=== PATIENT | male | born 1955 | race Caucasian/White ===

== ENCOUNTER → 2016-09-04 | Outpatient (CLI) | payer BC ==
--- NOTE | 2016-09-04 09:30 | DIAGNOSTIC IMAGING REPORT ---
CT LUNG SCREENING, LOW DOSE WITH COMPUTER-AIDED DETECTION (CAD) CLINICAL HISTORY: LUNG CANCER SCREEN COMPARISON STUDY: Chest radiograph dated 01/16/2013. CT DOSE: 98.01 mGy.cm TECHNIQUE: Low-dose helical CT was acquired without intravenous contrast from lung apices to bases and reconstructed at 2.5 mm every 2 mm. CAD was utilized for this study. FINDINGS: Thyroid: Imaged portions of the thyroid gland are normal in appearance. Thoracic aorta: There is mild atherosclerotic calcification of the thoracic aorta, which is normal in caliber and demonstrates standard 3 vessel arch anatomy. Heart: The heart is normal in size and without pericardial effusion. The pulmonary trunk is normal in caliber. Lungs and pleural spaces: Biapical scarring and emphysema are noted. There is no airspace consolidation or pleural effusion. A fat-containing Bochdalek hernia is seen at the right lung base. The trachea and central airways are clear. No concerning pulmonary lesion is seen. Mediastinum: There is no mediastinal lymphadenopathy. Lizeth: Not well assessed without IV contrast. Axilla: Clear. Upper abdomen: There is a small hiatal hernia. Partially visualized upper abdominal viscera is otherwise grossly unremarkable. Skeletal structures: There are no lytic or blastic osseous lesions. IMPRESSION: 1. Emphysema. 2. No concerning pulmonary lesion is identified. See below. 3. No mediastinal lymphadenopathy is seen. CAD FINDINGS: Overall Lung RADS Category: 1 Lung RADS Management Recommendation: Lung-RADS 1: Continue annual screening in 12 months. Lung RADS Follow Up Date: 2017-09-04 Electronically signed by: Jorge Carlton M.D. 09/04/2016 9:28 AM Dictated Date/Time: 09/04/2016 9:21 AM
== END | disposition home or self-care (01) ==
LOC: C.CTS 09:02
PROVIDERS: ATTEND Family Medicine
DX: Z12.2 Encounter for screening for malignant neoplasm of respiratory organs (principal); J43.9 Emphysema, unspecified

== ENCOUNTER → 2017-09-08 | Outpatient (CLI) | payer OTHER ==
--- NOTE | 2017-09-08 09:36 | DIAGNOSTIC IMAGING REPORT ---
CT LUNG SCREENING, LOW DOSE WITH COMPUTER-AIDED DETECTION (CAD) CLINICAL HISTORY: Lung cancer screening. COMPARISON STUDY: Chest CT 09/04/2016. CT DOSE: 97.49 mGy.cm TECHNIQUE: Low-dose helical CT was acquired without intravenous contrast from lung apices to bases and reconstructed at 2.5 mm every 2 mm. CAD was utilized for this study. A dose lowering technique was utilized adhering to the principles of ALARA. FINDINGS: Emphysema. Mild biapical scarlike densities remain unchanged. No new or suspicious pulmonary nodules. The central airways are patent. No suspicious lytic or blastic osseous lesions. No mediastinal or hilar lymphadenopathy. Normal caliber thoracic aorta. The heart is borderline enlarged. Right-sided gynecomastia. The visualized liver, spleen, and adrenal glands are unremarkable. There are 2 subcentimeter nodules within the left lung apex on images 26 and 30. There is a single subcentimeter nodule within the right lung apex on image 33. These were present on the prior study. Nodule 1 Category: 2 Nodule 1 Status: Stable Nodule 1 Description: Solid Nodule 1 Lesion ID: 9 Nodule 1 Slice Number: [id number] Nodule 1 Volume (mm3): 85 Nodule 1 [place] mm: 6.7 Nodule 1 [place] mm: 3.4 Nodule 2 Category: 2 Nodule 2 Status: Stable Nodule 2 Description: Solid Nodule 2 Lesion ID: 8 Nodule 2 Slice Number: [id number] Nodule 2 Volume (mm3): 40 Nodule 2 [place] mm: 4.8 Nodule 2 [place] mm: 2.5 Nodule 3 Category: 2 Nodule 3 Status: Stable Nodule 3 Description: Solid Nodule 3 Lesion ID: 6 Nodule 3 Slice Number: 144 Nodule 3 Volume (mm3): 37 Nodule 3 [place] mm: 4.4 Nodule 3 [place] mm: 3.8 IMPRESSION: No change compared to the prior study. Recommendations as described below. CAD FINDINGS: Overall Lung RADS Category: 2 Lung RADS Management Recommendation: Continue annual lung cancer screening. Lung RADS Follow Up Date: 2018-09-08 Lung RADS Nodule ID: [id number] Electronically signed by: Brice Russell M.D. 09/08/2017 9:35 AM Dictated Date/Time: 09/08/2017 9:19 AM
== END | disposition home or self-care (01) ==
LOC: C.CTS 08:18
PROVIDERS: ATTEND Family Medicine
DX: Z12.2 Encounter for screening for malignant neoplasm of respiratory organs (principal)